=== PATIENT | male | born 1945 | race Caucasian/White ===

== ENCOUNTER → 2020-04-03 | Outpatient (CLI) | payer MEDICARE, OTHER ==
[~2020-04-03] MED LIST: AMLO-186 PO; ASPI-630 PO; ATOR40TA59 PO; BUSP5TAB PO; DICY10CA3 PO; ERYT250T89 PO; EZET10TA20 PO; FAMO-63 PO; FURO40TA4 PO; LEVO100T5 PO; LEXAPRO10 MG PO; PANT40TA77 PO; POTA10TA12 PO; URSO250T3 PO
== END ==
LOC: LAB 13:22
PROVIDERS: ATTEND Dentist Oral and Maxillofacial Surgery
DX: Z01.812 Encounter for preprocedural laboratory examination (principal); Z20.828 Contact with and (suspected) exposure to other viral communicable diseases
CPT/HCPCS: U0003

== ENCOUNTER 2020-04-07 09:07 | Day surgery (SDC) | payer MEDICARE, OTHER ==
[~2020-04-07] VITALS: Ht 170.2 cm; Wt 65.8 kg
[~2020-04-07 09:07] MED LIST changes: +BACITRACIN 50,000 UNIT in IV NORMAL SALINE 500ML BAG 500 ML IRR ONE; +BUPIVACAINE-EPI 0.5%-1:200000 MPF 30 ML VIAL. INJ ONE; +CHLORHEXIDINE 0.12% 15 ML MOUTHWASH. SWSP ONE; +HYDROmorphone 2 MG/ML VIAL IV PRN; +IV RINGERS,LACTATED 1000ML 1,000 ML IV SCH; +LIDOCAINE 1% PF 2 ML VIAL. ID PRN; +MIDAZOLAM HCL/PF 2 MG/2 ML VIAL. ONE; +MORPHINE SULFATE 2 MG/ML VIAL. IV PRN; +ONDANSETRON PF 4 MG/2 ML VIAL. IV PRN; +PROCHLORPERAZINE 10 MG/2 ML VIAL. IV PRN; +PROPOFOL 10 MG/ML (20ML) VIAL. IV ONE; +ceFAZolin SODIUM IV Push 1 GM VIAL. IVP PRN; +fentaNYL PF VIAL 100 MCG/2 ML VIAL IV PRN
[2020-04-07] MEDS ORDERED: GELATIN SPONGE SIZE 12-7MM SPONGE. ONE (10:04)
[2020-04-07] MEDS ORDERED: CHLORHEXIDINE 0.12% 15 ML MOUTHWASH. ONE (10:18)
--- NOTE | 2020-04-07 10:45 | PDOC4 ---
OPERATIVE NOTE Date: Date: Apr 07, 2020 Pre-Op Diagnosis: dementia fractured, non restorable tooth #8 Post-Op Diagnosis: same Procedure Performed: sx extraction # 8 Surgeon: adrian Anesthesia Type: valerie Blood Loss: 2 Specimans Obtained: tooth #8 disposed of in OR Findings: see dictation Complications: none Operative Note: see dictation dementia fractured, non restorable tooth #8 NICK OG DMD Apr 07, 2020 10:45
--- NOTE | 2020-04-07 11:35 | OP ---
DATE OF SURGERY: 04/07/2020 OPERATING SERVICE: superintendent electric power. PREOPERATIVE DIAGNOSES: 1. Dementia. 2. Fractured nonrestorable tooth #8. POSTOPERATIVE DIAGNOSES: 1. Dementia. 2. Fractured nonrestorable tooth #8. PROCEDURE PERFORMED: Surgical removal of tooth #8 in the OR. BRIEF HISTORY: The patient is a 74-year-old male with onset dementia affecting his behavior. He had an unfortunate experience at his general dentist's office when they attempted to extract nonrestorable tooth #8 under local anesthesia. He had a loud vigorous anxiety attack, which was dangerous for both the patient and clinic. He was referred to our clinic for removal of this tooth in a more controlled setting. Considering his previous behavior, we elected to escalate the setting of care and provide treatment in the operative setting here at [facility] for maximum safety for the patient and staff. Permit was obtained. History and physical was performed in our clinic. ESTIMATED BLOOD LOSS: Approximately 2-5 mL. DRAINS PLACED: None. SPECIMEN SENT: None. Tooth was disposed off in the OR. COMPLICATIONS: None noted at the time of surgery. OPERATIVE DESCRIPTION: After the history and physical was updated in the preoperative holding area, the patient was transported by the Anesthesia Service to the operating suite, placed in the supine position. MAC anesthetic was initiated for the patient's comfort. General airway maneuvers were employed to keep the patient ventilating without complication. Gauze was packed. The oral cavity was cleaned with Peridex. The timeout was initiated and all perioperative staff was in agreeance. Local anesthesia in the form of 0.5% bupivacaine, 1:200,000 epinephrine was administered into the proposed surgical area and the tooth #8 had a full- thickness mucoperiosteal flap reflected with a 15 blade with periosteal assistance and tooth #8 was surgically removed with elevators and forceps without complication. The extraction site was then curetted, lavaged and suctioned and packed with Gelfoam and oversewn with 3-0 chromic gut sutures x 2 pghkmn-df-velwa sutures. Culmination of the procedure was reached. The oral cavity was lavaged and suctioned. The patient was then returned to the care of Anesthesia where he was allowed to awaken and resume normal coherence. He was transported to the PACU for recovery in a stable condition. NICK OG DMD DR: Sakshi JOB#: [id number] / [id number] ALVARO
[2020-04-07 11:43] VITALS: BP 150/100
== END 2020-04-07 12:32 | disposition home or self-care (01) ==
LOC: SURG 09:07
PROVIDERS: ATTEND Dentist Oral and Maxillofacial Surgery
DX: F03.90 Unspecified dementia, unspecified severity, without behavioral disturbance, psychotic disturbance, mood disturbance, and anxiety (principal); K03.81 Cracked tooth; I25.10 Atherosclerotic heart disease of native coronary artery without angina pectoris; I10 Essential (primary) hypertension; G47.33 Obstructive sleep apnea (adult) (pediatric); F41.9 Anxiety disorder, unspecified; F32.9 Major depressive disorder, single episode, unspecified; E78.00 Pure hypercholesterolemia, unspecified; K21.9 Gastro-esophageal reflux disease without esophagitis; E03.9 Hypothyroidism, unspecified; M19.90 Unspecified osteoarthritis, unspecified site; Z90.49 Acquired absence of other specified parts of digestive tract; Z98.890 Other specified postprocedural states; Z79.899 Other long term (current) drug therapy; Z79.82 Long term (current) use of aspirin; Z88.1 Allergy status to other antibiotic agents; Z88.2 Allergy status to sulfonamides; Z88.5 Allergy status to narcotic agent; Z88.8 Allergy status to other drugs, medicaments and biological substances
CPT/HCPCS: 41899; J0690; J2250; J2704; J7040

== ENCOUNTER 2020-10-27 11:48 | Day surgery (SDC) | payer MEDICARE, OTHER ==
[~2020-10-27] VITALS: Ht 170.2 cm; Wt 68.1 kg
[~2020-10-27 11:48] MED LIST changes: -BACITRACIN 50,000 UNIT in IV NORMAL SALINE 500ML BAG 500 ML IRR ONE; -BUPIVACAINE-EPI 0.5%-1:200000 MPF 30 ML VIAL. INJ ONE; -CHLORHEXIDINE 0.12% 15 ML MOUTHWASH. SWSP ONE; +CHOL500050 PO; +DEXAMETHASONE SOD PHOS 4 MG/ML VIAL ONE; -HYDROmorphone 2 MG/ML VIAL IV PRN; +HYDROmorphone 2 MG/ML VIAL IVP PRN; -LIDOCAINE 1% PF 2 ML VIAL. ID PRN; +LIDOCAINE 2% PF 5 ML VIAL. ONE; -MIDAZOLAM HCL/PF 2 MG/2 ML VIAL. ONE; -MORPHINE SULFATE 2 MG/ML VIAL. IV PRN; +MORPHINE SULFATE 2 MG/ML VIAL. IVP PRN; -ONDANSETRON PF 4 MG/2 ML VIAL. IV PRN; +ONDANSETRON PF 4 MG/2 ML VIAL. ONE; -PROCHLORPERAZINE 10 MG/2 ML VIAL. IV PRN; +PROCHLORPERAZINE 10 MG/2 ML VIAL. IVP PRN; +ROCURONIUM 50 MG/5 ML VIAL. ONE; -fentaNYL PF VIAL 100 MCG/2 ML VIAL IV PRN; +fentaNYL PF VIAL 100 MCG/2 ML VIAL IVP PRN
[2020-10-27] MEDS ORDERED: fentaNYL PF VIAL 100 MCG/2 ML VIAL ONE (12:29)
[2020-10-27] MEDS ORDERED: GELATIN SPONGE SIZE 100. ONE (13:13)
[2020-10-27] MEDS ORDERED: BUPIVACAINE-EPI 0.5%-1:200000 MPF 30 ML VIAL. ONE (13:14)
[2020-10-27] MEDS ORDERED: CHLORHEXIDINE 0.12% 15 ML MOUTHWASH. ONE (13:14)
[2020-10-27] MEDS ORDERED: GELATIN SPONGE SIZE 12-7MM SPONGE. ONE (13:16)
--- NOTE | 2020-10-27 13:51 | PDOC4 ---
OPERATIVE NOTE Date: Date: Apr 07, 2020 Pre-Op Diagnosis: Dementia, HTN/CAD EILEEN Anxiety Carious, fractured # 6 Post-Op Diagnosis: same Procedure Performed: extraction #6 Surgeon: adrian Anesthesia Type: hapgood Blood Loss: 10ml Specimans Obtained: tooth disposed of in the OR Findings: see dictation Complications: none Operative Note: see dictation NICK OG DMD October 27, 2020 13:51
[2020-10-27 14:38] VITALS: BP 153/70
--- NOTE | 2020-10-27 14:54 | OP ---
DATE OF SURGERY: 10/27/2020 OPERATIVE SERVICE: Oral and Maxillofacial service. ATTENDING PHYSICIAN: Erik Lang DMD PREOPERATIVE DIAGNOSES: 1. Dementia. 2. Coronary artery disease and hypertension. 3. Obstructive sleep apnea. 4. He also has anxiety, depression. 5. He also has carious tooth nonrestorable fractured #6. POSTOPERATIVE DIAGNOSES: 1. Dementia. 2. Coronary artery disease and hypertension. 3. Obstructive sleep apnea. 4. He also has anxiety, depression. 5. He also has carious tooth nonrestorable fractured #6. PROCEDURE PERFORMED: General anesthesia in the OR and surgical extraction of tooth#6. BRIEF HISTORY: The patient is a 75-year-old gentleman who suffers from dementia, has had previous failed treatment under local anesthesia for extraction where he had uncontrollable and erratic behavior with the beginning of treatment. Therefore, instead of trying to perform this under local or sedation, general anesthetic was preferred to have complete control of his airway and not cause undue duress to the patient and family. History and physical was performed in our clinic. Permit was obtained. The patient was scheduled for surgery. ESTIMATED BLOOD LOSS: Less than 10 mL. DRAINS PLACED: None. SPECIMEN SENT: None. Teeth were disposed of in the OR. COMPLICATIONS: None were noted in the OR at the time of surgery. SURGICAL DESCRIPTION: After history and physical was updated in the preoperative holding area, the patient was transported by the anesthesia service to the operating suite, placed in the supine position. General anesthesia was induced. The patient was then intubated with LMA, which was secured. A timeout was initiated by surgical staff and all preoperative staff was in agreement. A moistened throat pack was placed. The patient was then prepped and draped in normal sterile fashion. Local anesthesia in the form of 0.5% Marcaine, 1:200,000 epinephrine was administered into the proposed surgical area, tooth #6. After the appropriate time had taken effect for the local anesthesia, a #15 blade was utilized to reflect a full thickness mucoperiosteal flap buccally with a periosteal elevator. Tooth was then luxated, elevated and extracted with forceps and rongeur. The site was then curetted with curettage. The site was then lavaged with copious normal sterile saline. Gelfoam was placed in the extraction site and oversewn with 3-0 chromic gut sutures in a axzirn-jv-gzngh fashion x 2. The site was then checked for hemostasis, found to be hemostatic. Gauze was placed into the site. The oral cavity was then lavaged and suctioned. The moistened throat pack was then removed and the patient was returned to the care of anesthesia where he was awakened and extubated without complication and transported to the PACU in a stable condition. PATIENCE/ANTONI DR: Sakshi TID: [id number]
== END 2020-10-27 14:55 | disposition home or self-care (01) ==
LOC: SURG 11:48
PROVIDERS: ATTEND Dentist Oral and Maxillofacial Surgery
DX: K02.63 Dental caries on smooth surface penetrating into pulp (principal); F03.90 Unspecified dementia, unspecified severity, without behavioral disturbance, psychotic disturbance, mood disturbance, and anxiety; I25.10 Atherosclerotic heart disease of native coronary artery without angina pectoris; I10 Essential (primary) hypertension; G47.33 Obstructive sleep apnea (adult) (pediatric); F41.9 Anxiety disorder, unspecified; F32.9 Major depressive disorder, single episode, unspecified; E78.00 Pure hypercholesterolemia, unspecified; K21.9 Gastro-esophageal reflux disease without esophagitis; E03.9 Hypothyroidism, unspecified; M19.90 Unspecified osteoarthritis, unspecified site; Z90.49 Acquired absence of other specified parts of digestive tract; Z98.890 Other specified postprocedural states; Z79.899 Other long term (current) drug therapy; Z79.82 Long term (current) use of aspirin; Z88.2 Allergy status to sulfonamides; Z88.5 Allergy status to narcotic agent; Z88.8 Allergy status to other drugs, medicaments and biological substances
CPT/HCPCS: 41899; A4930; J0690; J1100; J2405; J2704; J3010; A4657

== ENCOUNTER 2021-09-11 23:39 | Emergency (ER) | payer MEDICARE, OTHER ==
[~2021-09-11] VITALS: Ht 182.9 cm; Wt 91.0 kg
[~2021-09-11 23:39] MED LIST changes: -DEXAMETHASONE SOD PHOS 4 MG/ML VIAL ONE; -HYDROmorphone 2 MG/ML VIAL IVP PRN; -IV RINGERS,LACTATED 1000ML 1,000 ML IV SCH; -LIDOCAINE 2% PF 5 ML VIAL. ONE; -MORPHINE SULFATE 2 MG/ML VIAL. IVP PRN; -ONDANSETRON PF 4 MG/2 ML VIAL. ONE; -PROCHLORPERAZINE 10 MG/2 ML VIAL. IVP PRN; -PROPOFOL 10 MG/ML (20ML) VIAL. IV ONE; -ROCURONIUM 50 MG/5 ML VIAL. ONE; -ceFAZolin SODIUM IV Push 1 GM VIAL. IVP PRN; -fentaNYL PF VIAL 100 MCG/2 ML VIAL IVP PRN
[2021-09-12 01:25] LABS: BASO # 0.1 x10^3/uL (0.0-0.2); BASO % 1 % (0-3); EOS # 0.1 x10^3/uL (0.0-0.7); EOS % 1 % (0-3); HEMATOCRIT 43.3 % (39.0-53.0); HEMOGLOBIN 14.2 g/dL (13.0-17.5); LYMPH # 1.9 x10^3/uL (1.0-4.8); LYMPH % 20 % (24-48); MEAN CORPUSCULAR HEMOGLOBIN 25 pg (25-35); MEAN CORPUSCULAR HGB CONC 33 g/dL (31-37); MEAN CORPUSCULAR VOLUME 77 fL (79-100); MONO # 0.7 x10^3/uL (0.0-1.1); MONO % 8 % (0-9); NEUT # 6.7 x10^3/uL (1.8-7.7); NEUT % 71 % (31-73); PLATELET COUNT 267 x10^3/uL (140-400); RED BLOOD COUNT 5.64 x10^6/uL (4.30-5.70); RED CELL DISTRIBUTION WIDTH 13.2 % (11.5-14.5); WHITE BLOOD COUNT 9.5 x10^3/uL (4.0-11.0)
[2021-09-12 01:34] LABS: CALCIUM 9.4 mg/dL (8.5-10.1); CREATININE 1.1 mg/dL (0.7-1.3); GFR 65.1; POTASSIUM 3.7 mmol/L (3.5-5.1)
--- NOTE | 2021-09-12 04:01 | PHYS DOC ---
Past Medical History Additional Past Medical Histor: patient poor historian Past Surgical History: Other Additional Past Surgical Histo: patient poor historian Smoking Status: Never Smoker Alcohol Use: None General Adult EDM: Chief Complaint: WEAKNESS/GENERALIZED HPI: HPI: Patient is a 75 year old male who presents with weakness. Onset several weeks ago. He is primarily here because his sister who is his primary caregiver is in the emergency department and he cannot be alone at home. Patient himself does not provide any medical history however he is at his mental baseline which is alert and pleasantly confused. Review of Systems: Review of Systems: Constitutional: Denies fever or chills. [] Eyes: Denies change in visual acuity. [] HENT: Denies nasal congestion or sore throat. [] Respiratory: Denies cough or shortness of breath. [] Cardiovascular: Denies chest pain or edema. [] GI: Denies abdominal pain, nausea, vomiting, bloody stools or diarrhea. [] : Denies dysuria. [] Musculoskeletal: Denies back pain or joint pain. [] Integument: Denies rash. [] Neurologic: Denies headache, focal weakness or sensory changes. [] Endocrine: Denies polyuria or polydipsia. [] Lymphatic: Denies swollen glands. [] Psychiatric: Denies depression or anxiety. [] Heart Score: C/O Chest Pain: No Risk Factors: Risk Factors: DM, Current or recent (<one month) smoker, HTN, HLP, family history of CAD, obesity. Risk Scores: Score 0 - 3: 2.5% MACE over next 6 weeks - Discharge Home Score 4 - 6: 20.3% MACE over next 6 weeks - Admit for Clinical Observation Score 7 - 10: 72.7% MACE over next 6 weeks - Early Invasive Strategies Allergies: Allergies: Allergies Coded Allergies Type Severity Reaction Last Updated Verified Sulfa (Sulfonamide Antibiotics) Allergy Intermediate 10/24/20 Yes sulfamethoxazole Allergy Intermediate 10/24/20 Yes trimethoprim Allergy Intermediate 10/24/20 Yes codeine Adverse Reaction Intermediate 10/24/20 Yes haloperidol Adverse Reaction Intermediate 10/24/20 Yes lorazepam Adverse Reaction Intermediate 10/24/20 Yes Physical Exam: PE: Constitutional: Well developed, well nourished, no acute distress, non-toxic appearance. [] HENT: Normocephalic, atraumatic, bilateral external ears normal, oropharynx moist, no oral exudates, nose normal. [] Eyes: PERRLA, EOMI, conjunctiva normal, no discharge. [] Neck: Normal range of motion, no tenderness, supple, no stridor. [] Cardiovascular:Heart rate regular rhythm, no murmur [] Lungs & Thorax: Bilateral breath sounds clear to auscultation [] Abdomen: Bowel sounds normal, soft, no tenderness, no masses, no pulsatile masses. [] Skin: Warm, dry, no erythema, no rash. [] Back: No tenderness, no CVA tenderness. [] Extremities: No tenderness, no cyanosis, no clubbing, ROM intact, no edema. [] Neurologic: alert Current Patient Data: Labs: Laboratory Tests Test 09/12/21 01:15 White Blood Count 9.5 x10^3/uL (4.0-11.0) Red Blood Count 5.64 x10^6/uL (4.30-5.70) Hemoglobin 14.2 g/dL (13.0-17.5) Hematocrit 43.3 % (39.0-53.0) Mean Corpuscular Volume 77 fL (79-100) L Mean Corpuscular Hemoglobin 25 pg (25-35) Mean Corpuscular Hemoglobin Concent 33 g/dL (31-37) Red Cell Distribution Width 13.2 % (11.5-14.5) Platelet Count 267 x10^3/uL (140-400) Neutrophils (%) (Auto) 71 % (31-73) Lymphocytes (%) (Auto) 20 % (24-48) L Monocytes (%) (Auto) 8 % (0-9) Eosinophils (%) (Auto) 1 % (0-3) Basophils (%) (Auto) 1 % (0-3) Neutrophils # (Auto) 6.7 x10^3/uL (1.8-7.7) Lymphocytes # (Auto) 1.9 x10^3/uL (1.0-4.8) Monocytes # (Auto) 0.7 x10^3/uL (0.0-1.1) Eosinophils # (Auto) 0.1 x10^3/uL (0.0-0.7) Basophils # (Auto) 0.1 x10^3/uL (0.0-0.2) Sodium Level 138 mmol/L (136-145) Potassium Level 3.7 mmol/L (3.5-5.1) Chloride Level 104 mmol/L (98-107) Carbon Dioxide Level 26 mmol/L (21-32) Anion Gap 8 (6-14) Blood Urea Nitrogen 21 mg/dL (8-26) Creatinine 1.1 mg/dL (0.7-1.3) Estimated GFR (Cockcroft-Gault) 65.1 Glucose Level 115 mg/dL (70-99) H Calcium Level 9.4 mg/dL (8.5-10.1) Troponin I High Sensitivity 19 ng/L (4-75) Laboratory Tests 09/12/21 01:15 Laboratory Tests 09/12/21 01:15 Vital Signs: Vital Signs Date Time Temp Pulse Resp B/P (MAP) Pulse Ox O2 Delivery O2 Flow Rate FiO2 09/11/21 23:53 97.7 101 16 145/74 (97) 97 Room Air 97.7 EKG: EKG: [] Radiology/Procedures: Radiology/Procedures: [] Course & Med Decision Making: Course & Med Decision Making Pertinent Labs and Imaging studies reviewed. (See chart for details) Patient's labs are unremarkable. He is at his mental baseline. Dragon Disclaimer: Dragon Disclaimer: This electronic medical record was generated, in whole or in part, using a voice recognition dictation system. Departure Departure Impression: Primary Impression: Dementia Disposition: 01 HOME / SELF CARE / HOMELESS Condition: STABLE Referrals: MARIELA BENNETT MD (PCP) Additional Instructions: Your brother is at his mental baseline. Please follow-up with his primary care doctor as needed. YOVANY JAIMES MD Sep 12, 2021 04:01
[2021-09-12 04:18] VITALS: BP 145/87
--- NOTE | 2021-09-14 07:51 | EKG ---
[facility] [address] [place] [address] Test Date: 2021-09-12 Test Time: 01:29:38 Pat Name: DERICK MI Department: Room: Gender: M [employer]ician: : 1945 Requested By: YOVANY JAIMES Order Number: [id number] Reading MD: Ritchie Peralta Measurements Intervals [place] Rate: 90 P: [place]: QRS: 197 QRSD: 130 T: 104 QT: 356 QTc: 440 Interpretive Statements SINUS RHYTHM ATRIAL PREMATURE COMPLEXES QRS(T) CONTOUR ABNORMALITY CONSISTENT WITH ANTEROSEPTAL INFARCT Electronically Signed On 09-18-2021 14:12:31 CDT by Ritchie Peralta
== END 2021-09-12 04:15 | disposition home or self-care (01) ==
LOC: ER 23:39
DX: F03.90 Unspecified dementia, unspecified severity, without behavioral disturbance, psychotic disturbance, mood disturbance, and anxiety (principal); R53.1 Weakness; Z88.1 Allergy status to other antibiotic agents; Z88.2 Allergy status to sulfonamides; Z88.5 Allergy status to narcotic agent; Z88.8 Allergy status to other drugs, medicaments and biological substances
CPT/HCPCS: 36415; 80048; 84484; 85025; 93005; 99284